=== PATIENT | female | born 1995 | race Caucasian/White ===

== ENCOUNTER 2016-03-13 12:56 | Inpatient (IN) | payer OTHER ==
[~2016-03-13 12:56] MED LIST: PROZ20 PO
[2016-03-13 14:13] LABS: Mean Corpuscular Hemoglobin 25.2 pg (27.0-35.0); Mean Corpuscular Volume 79.1 fL (81-100)
[2016-03-13] MEDS ORDERED: Lactated Ringer's 1,000 ML IV ONE (16:06)
[2016-03-13] MEDS ORDERED: Magnesium Sulfate 4 Gm/100 mL Water Premix IV ONE (16:06)
[2016-03-13] MEDS ORDERED: Calcium GLUCOnate 10% (Gm) 1 Gm/10 mL Inj ONE (16:07)
[2016-03-13] MEDS ORDERED: Betameth Ace-Betam SodPhos 6 mg/mL 5 mL Inj IM ONE (16:50)
[2016-03-13] MEDS ORDERED: Magnesium Sulf 4 Gm/100 mL D5W Premix IV ONE (17:05)
[2016-03-13] MEDS ORDERED: Magnesium Sulf 20 Gm/500mL D5W Premix IV SCH (17:05)
[2016-03-13 17:19] LABS: APPEARANCE,URINE SLIGHTLY CLOUDY (CLEAR,HAZY); COLOR,URINE YELLOW (YELLOW)
[2016-03-13 17:20] LABS: OCCULT BLOOD,URINE MODERATE (NEGATIVE); UROBILINOGEN,URINE NORMAL (NORMAL)
[2016-03-13] MEDS ORDERED: Labetalol 5 mg/mL 20 mL Inj ONE (17:28)
--- NOTE | 2016-03-13 18:09 | PCM.HPOB ---
Subjective Date of Service: Mar 13, 2016 Referring Provider: Admitting Physician: Bonnie Linares MD Primary Care Physician: Bryanna Cochran Attending Physician: Bonnie Linares MD Chief Complaint sudden swelling History of Present History of Present Illness 20 Y/O at 32 weeks 5days by CESAR 05/02/2016 by LMP and consistent with 7 weeks US. Patient usual care at [place], [place] by Dr Mahmood. Patient presented today with complaint of sudden swelling in the legs and hands . Positive history of chronic headache. Nausea and vomiting in the last 2 weeks. No vision change today but report two episodes for blurry vision and white spots in the last month. Past Medical History Obstetrical History: G1: 2012 , at term, female, 8 lb, no complications. G2: Elective AB, D&C at 9 weeks. G3: 2014, Missed AB D&C Gynecologic History: Regular menstrual cycles. Medical History: Chronic headache. Depression , Post depression. Knee injury Surgical History: D&C Hx Tobacco Use: No Hx Alcohol Use: No Hx Substance Use: No Genetic Screening/Counseling Genetic Screening/Counseling: Negative (per pt history. ) Review of Systems ROS 10 points ROS is negative except for the items mentioned in the HPI. Allergy Coded Allergies: adhesive tape (Verified Allergy, Unknown, 03/13/16) Not allergic to latex erythromycin base (Verified Allergy, Unknown, 03/13/16) topical eye antobiotic , caused her to have red eye. Exam Vital Signs BP 140's/80s at presentation and labile Systolic as high as 158 , Diastolic 102 Exam 130 ,moderate variability , positive accelerations and no decelerations. [place]: no contractions. Constitutional: Well-developed HEENT: Atraumatic Lungs: Clear to Auscultation Heart: Regular Rate/Rhythm, Normal S1, Normal S2 Abdomen: Gravid, Soft, No tenderness Extremities: Pulses Palpable x4, Edema Neurological/Psychiatric: Alert, Oriented X3 Neuro: Other (DTR +3 B/L ) Labs/Diagnostics Labs Laboratory Tests 72 Hours Test 03/13/16 13:50 03/13/16 16:35 White Blood Count 7.6th/mm3 (3.8-10.1) Red Blood Count 4.16mil/mm3 (3.90-5.20) Hemoglobin 10.5g/dL (12.0-15.6) Hematocrit 32.9% (35.0-46.0) Mean Corpuscular Volume 79.1fL (81-100) Mean Corpuscular Hemoglobin 25.2pg (27.0-35.0) Mean Corpuscular Hemoglobin Concent 31.9% (32.0-37.0) Red Cell Distribution Width 14.9% (12.3-15.4) Platelet Count 167bil/L (150-400) Hematology Comments Urine Random Creatinine 150mg/dL (16-392) 125mg/dL (16-392) Urine Random Total Protein 5267mg/dL (0-15) Urine Protein/Creatinine Ratio 35.11 Blood Urea Nitrogen 24mg/dL (6-20) Creatinine 0.78mg/dL (0.57-1.00) Uric Acid 7.5mg/dL (2.6-7.2) Aspartate Amino Transf (AST/SGOT) 26U/L (0-50) Alanine Aminotransferase (ALT/SGPT) 9U/L (0-32) Urine Color Yellow (YELLOW) Urine Appearance Slightly cloudy Urine pH 6.0 (5.0-8.0) Urine Specific [place] 1.025 (1.003-1.035) Urine Protein >300mg/dL (NEG,TRACE) Urine Glucose (UA) Negativemg/dL (NEGATIVE) Urine Ketones Negativemg/dL (NEGATIVE) Urine Occult Blood Moderate (NEGATIVE) Urine Nitrite Negative (NEGATIVE) Urine Bilirubin Negative (NEGATIVE) Urine Urobilinogen Normalmg/dL (NORMAL) Urine Leukocyte Esterase Negative (NEGATIVE) Urine RBC 0-2/hpf (0-2) Urine WBC 6-10/hpf (0-5) Urine Epithelial Cells Moderate/hpf (NONE-MOD) Urine Crystals Amorphous urates (NONE Urine Bacteria Moderate/hpf (NONE-FEW) Urine Hyaline Casts 5/20/lpf (NONE) Urine Granular Casts Occasional (NONE SEEN) Urine Waxy Casts None seen (NONE SEEN) Urine Red Blood Cell Casts None seen (NONE SEEN) Urine White Blood Cell Casts None seen (NONE SEEN) Urine Mucus Present (None Seen) Urine Trichomonas None seen (NONE SEEN) Urine Yeast None (NONE SEEN) Urinalysis Comment None Urine Culture Reflexed Indicated Maternal Blood Type: A (positive ) Group B Strep Results: Not done Rubella: Immune Additional Information Glucose scree (normal), HBsAg negative, Hep B AB negative, HIV negative, VDRL none reactive, Varicella immune. pap smear inadequate sample (will be collected post ) OB Intrapartum Assessment/Plan Assessment 20 Y/O at 32 weeks 5days by CESAR 05/02/2016 by LMP and consistent with 7 weeks US. Preeclampsia with sever features Labile BP 150's/100's Protein creatinine ratio 35. Headache, N/V and edema. Elevated Urice acid and Creatinine 0.78 Normal platelets 167 Anemia Hgb 10.5. Pain Management: start MgSO4 4 g loading and 2 g maintenance. BMZ first dose given at 1740, 03/13/16. 200 mg labetalol oral Tylenol 965 mg PO once. Transfer care to [facility] , was accepted by Dr. Theodore. Will differ the GBS collection and growth evaluation to [facility]. Bonnie Linares MD Mar 13, 2016 18:09
--- NOTE | 2016-05-26 13:44 | PCM.DC.OB ---
Obstetrical Discharge Summary Date of Service May 26, 2016 Date of hospital admission Mar 13, 2016 at 16:10 Date of Discharge: Mar 13, 2016 Providers Admitting Physician: Bonnie Linares MD Primary Care Physician: Bryanna Cochran Attending Physician: Bonnie Linares MD Diagnosis at Time of Discharge Preeclampsia with sever features Labile BP 150's/100's Protein creatinine ratio 35. Headache, N/V and edema. Elevated Urice acid and Creatinine 0.78 Normal platelets 167 Anemia Hgb 10.5. Problems: Brief History and Physical: Chief Complaint sudden swelling History of Present History of Present Illness 20 Y/O at 32 weeks 5days by CESAR 05/02/2016 by LMP and consistent with 7 weeks US. Patient usual care at [place], [place] by Dr Mahmood. Patient presented today with complaint of sudden swelling in the legs and hands . Positive history of chronic headache. Nausea and vomiting in the last 2 weeks. No vision change today but report two episodes for blurry vision and white spots in the last month. Transfer care to [facility] , was accepted by Dr. Theodore. Differed the GBS collection and growth evaluation to [facility]. start MgSO4 4 g loading and 2 g maintenance. BMZ first dose given at 1740, 03/13/16. 200 mg labetalol oral Tylenol 965 mg PO once. Exam Vital Signs BP 140's/80s at presentation and labile Systolic as high as 158 , Diastolic 102 Exam 130 ,moderate variability , positive accelerations and no decelerations. [place]: no contractions. Constitutional: Well-developed HEENT: Atraumatic Lungs: Clear to Auscultation Heart: Regular Rate/Rhythm, Normal S1, Normal S2 Abdomen: Gravid, Soft, No tenderness Extremities: Pulses Palpable x4, Edema Neurological/Psychiatric: Alert, Oriented X3 Neuro: Other (DTR +3 B/L ) Labs/Diagnostics Labs/Diagnostics Labs Laboratory Tests 72 Hours Test 03/13/16 13:50 03/13/16 16:35 White Blood Count 7.6th/mm3 (3.8-10.1) Red Blood Count 4.16mil/mm3 (3.90-5.20) Hemoglobin 10.5g/dL (12.0-15.6) Hematocrit 32.9% (35.0-46.0) Mean Corpuscular Volume 79.1fL (81-100) Mean Corpuscular Hemoglobin 25.2pg (27.0-35.0) Mean Corpuscular Hemoglobin Concent 31.9% (32.0-37.0) Red Cell Distribution Width 14.9% (12.3-15.4) Platelet Count 167bil/L (150-400) Hematology Comments Urine Random Creatinine 150mg/dL (16-392) 125mg/dL (16-392) Urine Random Total Protein 5267mg/dL (0-15) Urine Protein/Creatinine Ratio 35.11 Blood Urea Nitrogen 24mg/dL (6-20) Creatinine 0.78mg/dL (0.57-1.00) Uric Acid 7.5mg/dL (2.6-7.2) Aspartate Amino Transf (AST/SGOT) 26U/L (0-50) Alanine Aminotransferase (ALT/SGPT) 9U/L (0-32) Urine Color Yellow (YELLOW) Urine Appearance Slightly cloudy Urine pH 6.0 (5.0-8.0) Urine Specific [place] 1.025 (1.003-1.035) Urine Protein >300mg/dL (NEG,TRACE) Urine Glucose (UA) Negativemg/dL (NEGATIVE) Urine Ketones Negativemg/dL (NEGATIVE) Urine Occult Blood Moderate (NEGATIVE) Urine Nitrite Negative (NEGATIVE) Urine Bilirubin Negative (NEGATIVE) Urine Urobilinogen Normalmg/dL (NORMAL) Urine Leukocyte Esterase Negative (NEGATIVE) Urine RBC 0-2/hpf (0-2) Urine WBC 6-10/hpf (0-5) Urine Epithelial Cells Moderate/hpf (NONE-MOD) Urine Crystals Amorphous urates (NONE Urine Bacteria Moderate/hpf (NONE-FEW) Urine Hyaline Casts 5/20/lpf (NONE) Urine Granular Casts Occasional (NONE SEEN) Urine Waxy Casts None seen (NONE SEEN) Urine Red Blood Cell Casts None seen (NONE SEEN) Urine White Blood Cell Casts None seen (NONE SEEN) Urine Mucus Present (None Seen) Urine Trichomonas None seen (NONE SEEN) Urine Yeast None (NONE SEEN) Urinalysis Comment None Urine Culture Reflexed Indicated Maternal Blood Type: A (positive ) Group B Strep Results: Not done Rubella: Immune Additional Information Glucose scree (normal), HBsAg negative, Hep B AB negative, HIV negative, VDRL none reactive, Varicella immune. pap smear inadequate sample (will be collected post ) Fluoxetine (Prozac) 20 Mg Cap 20 MG PO DAILY (Reported) Disposition Disposition: Transfer care to [facility] , was accepted by Dr. Theodore. Discharge Condition: Guarded. Bonnie Linares MD May 26, 2016 13:44
== END 2016-03-13 18:36 | disposition short-term general hospital (02) | DRG 566 ==
LOC: FBCO 12:56 → FBC 16:10
PROVIDERS: ADMIT Obstetrics & Gynecology; ATTEND Obstetrics & Gynecology
DX: O14.13 Severe pre-eclampsia, third trimester (principal); Z3A.32 32 weeks gestation of pregnancy